=== PATIENT | female | born 1955 | race Caucasian/White ===

== ENCOUNTER → 2016-12-09 | Outpatient (CLI) | payer BC ==
--- NOTE | ~2016-12-09 | MR40 ---
[facility] A Service of [facility] [place] RADIOLOGY TEXT RESULTS PATIENT: CHAVEZ VALENTINE LOCATION: [facility] : 53 UNIT #: [id number] AGE: [address]: MIRA KENNY MD SEX: F ORDER DR: [id number] [address] [address] [id number] O MR#: [id number] Acc #: [id number] NAME: CHAVEZ VALENTINE : 1955 SEX: F STUDY DATE/TIME: 12/09/2016 13:10 UNIT: [facility] ROOM: STUDY DESCRIPTION: MR Elbow WWo Contrast Lt Attending Physician: Mira Kenny M.D. Referring Physician: Mira Kenny M.D. Primary Care Physician: Mira Kenny M.D. MRI CENTER REPORT This report is preliminary unless electronic signature is present. EXAM Left upper extremity MRI without with contrast, 12/09/2016. HISTORY 61-year-old female with palpable mass along the volar aspect of the elbow status post fall 09/21/2016. Patient states palpable area is increasing in size. No prior left elbow surgery COMPARISON None. TECHNIQUE Multiplanar, multisequence high-field MR imaging of the left elbow was performed both pre and post administration of IV gadolinium (15 mL MultiHance). FINDINGS An external marker was placed over the area of palpable concern along the volar aspect of the elbow. Deep to the marker, there is no abnormal soft tissue signal. No abnormal enhancement or evidence of a soft tissue mass. No abnormal fluid collections. Visualized vascular structures and musculature are within normal limits. Bone marrow signal is unremarkable. No joint effusion. IMPRESSION Unremarkable examination. No evidence of a soft tissue mass, abnormal fluid collection, or abnormal enhancement. Visualized vascular structures, musculature, and the bony structures are unremarkable. Dictated by... Rigo Quiels M.D. [facility] A Service [facility] RADIOLOGY TEXT RESULTS PATIENT: CHAVEZ VALENTINE LOCATION: [facility] : 53 UNIT #: [id number] AGE: [address]: MIRA KENNY MD SEX: F ORDER DR: THIS IS AN ELECTRONICALLY VERIFIED REPORT Rigo Quiles M.D. at 12/14/2016 7:31 AM Matias TD: 12/10/2016 11:50 JOB #: [id number] MRI CENTER REPORT Page 1 of 1
--- NOTE | ~2016-12-09 | US128 ---
[id number] [address] [address] [id number] O MR#: [id number] Acc #: [id number] NAME: CHAVEZ VALENTINE : 1955 SEX: F STUDY DATE/TIME: 12/09/2016 14:10 UNIT: [facility] ROOM: STUDY DESCRIPTION: Thyroid Attending Physician: Mira Kenny M.D. Referring Physician: Mira Kenny M.D. Primary Care Physician: Mira Kenny M.D. MEDICAL IMAGING REPORT This report is preliminary unless electronic signature is present. EXAM Ultrasound of the thyroid gland INDICATIONS Thyroid nodule evidently identified on outside imaging performed at [facility] on October 01, 2016. TECHNIQUE Corona-scale and color Doppler sonographic images were obtained through the thyroid gland. FINDINGS The right lobe of the thyroid gland measures 4.5 x 2.3 x 1.5 cm left lobe measures 3.9 x 1.2 x 1.4 cm. Multiple thyroid nodules are seen. At least 3 solid nodules are seen within the right lobe of the thyroid gland with the single largest measuring up to 1.4 x 1.3 x 0.7 cm. Inferior to it there is an 8 x 5 x 5 mm nodule and inferior to that there is a 8 x 6 x 6 mm nodule. Again multiple other tiny nodules are seen scattered throughout the thyroid gland. Additional nodules are seen on the left. Single largest on the left measures 5 x 5 x 6 mm is located within the mid portion of the left lobe of the thyroid. IMPRESSION Multiple tiny thyroid nodules seen throughout both lobes of the thyroid gland. Single largest nodule is a solid nodule measuring up to 1.3 x 0.7 x 1.4 cm. None of the nodules meet size criteria for percutaneous sampling. Short-term sonographic followup in 6 months is suggested to document stability. Dictated by... Danielle Ash M.D. THIS IS AN ELECTRONICALLY VERIFIED REPORT Danielle Ash M.D. at 12/10/2016 4:29 PM AFF/rnr TD: 12/09/2016 19:47 JOB #: [id number] MEDICAL IMAGING REPORT Page 1 of 1
[2016-12-09 14:11] LABS: POC - CREATININE 0.76 mg/dL (0.44-1.03); POC - GFR >60.0 mL/min (>60)
== END | disposition home or self-care (01) ==
LOC: SMRI 12:17
PROVIDERS: Family Medicine
DX: E04.1 Nontoxic single thyroid nodule (principal); M79.89 Other specified soft tissue disorders; E04.2 Nontoxic multinodular goiter
CPT/HCPCS: 73223; 76536; 82565; A9581